=== PATIENT | male | born 1970 | race Caucasian/White ===

== ENCOUNTER 2018-01-22 16:47 | Emergency (ER) | payer OTHER ==
[~2018-01-22] VITALS: Ht 167.6 cm; Wt 102.3 kg
[2018-01-22 17:06] VITALS: Ht 167.6 cm; Wt 102.3 kg
[2018-01-22] MEDS ORDERED: SODIUM CHLORIDE 0.9% 1000ML 1,000 ML IV STA (17:24)
[2018-01-22] MEDS ORDERED: KETOROLAC TROMETHAMINE 30 MG/ML VIAL IV STA (17:24)
[2018-01-22] MEDS ORDERED: ACETAMINOPHEN 500 MG TAB PO STA (17:24)
[2018-01-22] MEDS ORDERED: ONDANSETRON INJ 2 MG/ML 2 ML VIAL IV STA (17:24)
--- NOTE | 2018-01-22 17:30 | EMERGENCY ROOM VISIT NOTE ---
History Report prepared by Tushar: Adonay Ron Under the Supervision of: Dr. Beto Trevizo M.D. First contact with patient: 17:09 Chief Complaint: FLU LIKE SX Stated Complaint: BODY ACHES, SWEATS, CHILLS, DEHYDRATION History of Present Illness The patient is a 47 year old male who presents to the Emergency Room with complaints of persistent flu-like symptoms that started 4 days ago. He states that he started off with nausea and episodes of vomiting, which lasted the day of onset into the next morning. The patient says that he has not vomited since then. The patient says that he has had a persistent fever with chills, in addition to muscle aches and sweats. He notes that he has had a decreased appetite, and has not been eating solid foods.The patient has been drinking Gatorade and water. The patient says that his temperature has been ranging from 100.4 to 100.6 today. He adds that he has had some neck stiffness, lightheadedness, and a headache. He rates his headache as a 7 out of 10 in severity, and describes it as sharp and throbbing. The patient notes that he has been a bit short of breath with walking around. He denies any chest pain, sore throat, congestion, cough, or diarrhea. The patient says that he has been taking DayQuil and NyQuil, the last time being this morning. He does not take any daily medications. The patient's adds that the patient had a tick bite 2 weeks ago which was removed, and he has not had a rash. Source of History: patient, spouse/significant other Onset: 4 days ago Position: other (global) Quality: other (flu-like symptoms) Timing: other (persistent) Associated Symptoms: + fevers, + chills, + headache, + diaphoresis, + neck pain, + SOB, + nausea, + vomiting, No sorethroat, No cough (or congestion), No chest pain, No diarrhea, No rash Note: Associated symptoms: Lightheadedness. Decreased appetite. Muscle aches. Review of Systems See HPI for pertinent positives & negatives. A total of 10 systems reviewed and were otherwise negative. Past Medical & Surgical Medical Problems: (1) Gout Nos (2) Hypertension (3) Other Spondylosis With Radiculopathy, Lumbosacral Region Surgical Problems: (1) History of shoulder surgery Family History FH: cancer FH: diabetes mellitus FH: hypertension FH: lung disease Social History Smoking Status: Never Smoker Alcohol Use: occasionally Marital Status: single Housing Status: lives with family, lives with significant other Occupation Status: employed Current/Historical Medications Scheduled Doxycycline Hyclate (Vibramycin), 100 MG PO BID Allergies Coded Allergies: No Known Allergies (Unverified , 09/21/16) Physical Exam Vital Signs Date Time Temp Pulse Resp B/P (MAP) Pulse Ox O2 Delivery O2 Flow Rate FiO2 01/22/18 19:17 78 16 124/78 98 01/22/18 18:37 37.6 85 16 141/96 98 Room Air 01/22/18 17:06 37.7 107 20 150/97 97 Room Air Physical Exam GENERAL: Patient is in no acute distress. HEENT: No acute trauma, normocephalic atraumatic, mucous membranes moist, no nasal congestion, no scleral icterus. NECK: No stridor, no adenopathy, no meningismus, trachea is midline. LUNGS: Clear to auscultation bilaterally, no wheeze, no rhonchi, breath sounds equal. HEART: Without murmurs gallops or rubs, regular rate and rhythm. ABDOMEN: Soft, nontender, bowel sounds positive, no hernias, no peritonitis. EXTREMITIES: No cyanosis or edema, full range of motion of all the joints without pain or difficulty, no signs for acute trauma. NEUROLOGIC: Oriented x 3, no acute motor or sensory deficits, no focal weakness. SKIN: No rash, no jaundice, no diaphoresis. Medical Decision & Procedures ER Provider Diagnostic Interpretation: X-ray results as stated below per interpretation by me and the radiologist: CHEST ONE VIEW PORTABLE CLINICAL HISTORY: Fever, sepsis COMPARISON STUDY: No previous studies for comparison. FINDINGS: The cardiac and mediastinal contours are normal. There is no evidence of focal pulmonary consolidation. There is no evidence of failure. No pleural effusions are visualized.[ IMPRESSION: No active disease in the chest. Electronically signed by: Tom Perez M.D. 01/22/2018 5:48 PM Dictated Date/Time: 01/22/2018 5:48 PM Laboratory Results 01/22/18 17:45 Red Blood Count 4.34, Mean Corpuscular Volume 89.4, Mean Corpuscular Hemoglobin 31.3, Mean Corpuscular Hemoglobin Concent 35.1, Mean Platelet Volume 10.3 01/22/18 17:45 Test 01/22/18 17:45 01/22/18 17:50 White Blood Count 3.89 K/uL (4.8-10.8) Red Blood Count 4.34 M/uL (4.7-6.1) Hemoglobin 13.6 g/dL (14.0-18.0) Hematocrit 38.8 % (42-52) Mean Corpuscular Volume 89.4 fL (80-100) Mean Corpuscular Hemoglobin 31.3 pg (25-34) Mean Corpuscular Hemoglobin Concent 35.1 g/dl (32-36) Platelet Count 78 K/uL (130-400) Mean Platelet Volume 10.3 fL (7.4-10.4) RDW Standard Deviation 39.5 fL (36.4-46.3) RDW Coefficient of Variation 12.1 % (11.5-14.5) Neutrophils % (Manual) 54.8 % Lymphocytes % (Manual) 22.6 % Variant Lymphocytes % (manual) 9.6 % Monocytes % (Manual) 13.0 % Neutrophils # (Manual) 2.13 K/uL (1.4-6.5) Total Absolute Neutrophils 2.13 K/uL (1.4-6.5) Lymphocytes # (Manual) 0.88 K/uL (1.2-3.4) Absolute Variant Lymphocytes 0.37 K/uL Total Absolute Lymphocytes 1.25 K/uL (1.2-3.4) Monocytes # (Manual) 0.51 K/uL (0.11-0.59) Platelet Estimate DECREASED Red Blood Cell Morphology Unremarkable Anion Gap 6.0 mmol/L (3-11) Est Creatinine Clear Calc Drug Dose 106.6 ml/min Estimated GFR () 107.5 Estimated GFR (Non- 92.7 BUN/Creatinine Ratio 9.0 (10-20) Calcium Level 8.4 mg/dl (8.5-10.1) Total Bilirubin 0.7 mg/dl (0.2-1) Aspartate Amino Transf (AST/SGOT) 44 U/L (15-37) Alanine Aminotransferase (ALT/SGPT) 53 U/L (12-78) Alkaline Phosphatase 46 U/L (45-117) Total Protein 7.8 gm/dl (6.4-8.2) Albumin 3.7 gm/dl (3.4-5.0) Globulin 4.1 gm/dl (2.5-4.0) Albumin/Globulin Ratio 0.9 (0.9-2) Lyme Disease IgG Antibody NEG (NEG) Lyme Disease IgM Antibody NEG (NEG) Urine Color DK YELLOW Urine Appearance CLEAR (CLEAR) Urine pH 5.5 (4.5-7.5) Urine Specific [place] 1.013 (1.000-1.030) Urine Protein NEG (NEG) Urine Glucose (UA) NEG (NEG) Urine Ketones NEG (NEG) Urine Occult Blood NEG (NEG) Urine Nitrite NEG (NEG) Urine Bilirubin NEG (NEG) Urine Urobilinogen NEG (NEG) Urine Leukocyte Esterase NEG (NEG) Influenza Type A Antigen Neg for Influ A (NEG) Influenza Type B Antigen Neg for Influ B (NEG) Laboratory results reviewed by me. Medications Administered Medications (Trade) Dose Ordered Sig/Caitlin Route Start Time Stop Time Status Last Admin Dose Admin Ondansetron HCl (Zofran Inj) 4 mg NOW STAT IV 01/22/18 17:24 01/22/18 17:28 DC 01/22/18 17:48 4 MG Ketorolac Tromethamine (Toradol Inj) 30 mg NOW STAT IV 01/22/18 17:24 01/22/18 17:28 DC 01/22/18 17:48 30 MG Acetaminophen (Tylenol Tab) 1,000 mg NOW STAT PO 01/22/18 17:24 01/22/18 17:28 DC 01/22/18 17:49 1,000 MG Sodium Chloride 1,000 ml @ 999 mls/hr Q1H1M STAT IV 01/22/18 17:24 01/22/18 18:24 DC 01/22/18 17:49 999 MLS/HR Ceftriaxone Sodium (Rocephin Inj) 1 gm NOW STAT IV 01/22/18 18:46 01/22/18 18:48 DC 01/22/18 18:58 1 GM Doxycycline Hyclate (Vibramycin Cap) 100 mg ONE ONCE PO 01/22/18 19:00 01/22/18 19:02 DC 01/22/18 18:59 100 MG ED Course 1710: The medical student, Katheryn Mcgraw, evaluated the patient. 1724: NSS 1000 ml @ 999 mls/hr IV, Tylenol Tab 1000 mg PO, Toradol Inj 30 mg IV , Zofran Inj 4 mg IV. 175: The patient was evaluated in room C4. A complete history and physical exam was performed. 184: Rocephin Inj 1 gm IV. 185: I reevaluated the patient and he is doing fine. 1899: Vibramycin Cap 100 mg PO. 1903: Reevaluated the patient and he is resting comfortably. Discussed results and discharge instructions: he verbalized understanding and agreement. The patient is ready for discharge. Medical Decision Differential diagnosis includes but is not limited to flu-like illness, influenza, pneumonia, dehydration, Lyme disease, electrolyte imbalance, anemia, UTI. There is a slightly low white blood cell count and platelet count. A mild anemia was noted. Renal panel testing shows no significant electrolyte abnormality or kidney failure. AST was slightly elevated on the liver enzyme testing. Chest x-ray does not show pneumonia or CHF. Influenza testing was negative. Lyme disease testing was negative. Ehrlichiosis testing is pending. Urinalysis does not show infection. Patient received IV saline, oral Tylenol, oral doxycycline. He was given IV Zofran, IV Toradol and IV ceftriaxone. Patient presents with flulike symptoms. He has some laboratory abnormalities consistent with possible ehrlichiosis. He did have a tick bite 2 weeks ago. I do think treatment with doxycycline for 2-3 weeks is indicated. Patient was encouraged to return if worsening and to follow with his doctor's office. He was discharged home. Medication Reconcilliation Current Medication List: was personally reviewed by me Blood Pressure Screening Patient's blood pressure: Elevated blood pressure Blood pressure disposition: Referred to PCP Impression Primary Impression: Influenza-like symptoms Additional Impression: Tick bite Scribe Attestation The scribe's documentation has been prepared under my direction and personally reviewed by me in its entirety. I confirm that the note above accurately reflects all work, treatment, procedures, and medical decision making performed by me. Departure Information Dispostion Home / Self-Care Prescriptions Doxycycline Hyclate (VIBRAMYCIN) 100 Mg Cap 100 MG PO BID for 21 Days, #42 CAP Prov: Beto Trevizo M.D. 01/22/18 Referrals No Doctor, Assigned (PCP) Patient Instructions My [facility] Additional Instructions doxycycline 2x per day for 3 weeks rest fluids motrin and or tylenol for fever return if worsening see boy hinkle this upcoming week for a reheck Lyme disease and Ehrlichiosis are possibilities today as we discussed Problem Qualifiers
--- NOTE | 2018-01-22 17:49 | DIAGNOSTIC IMAGING REPORT ---
CHEST ONE VIEW PORTABLE CLINICAL HISTORY: Fever, sepsis COMPARISON STUDY: No previous studies for comparison. FINDINGS: The cardiac and mediastinal contours are normal. There is no evidence of focal pulmonary consolidation. There is no evidence of failure. No pleural effusions are visualized.[ IMPRESSION: No active disease in the chest. Electronically signed by: Tom Perez M.D. 01/22/2018 5:48 PM Dictated Date/Time: 01/22/2018 5:48 PM
[2018-01-22 18:22] LABS: ALBUMIN 3.7 gm/dl (3.4-5.0); CALCIUM 8.4 mg/dl (8.5-10.1); CREATININE 0.98 mg/dl (0.60-1.40); POTASSIUM 3.3 mmol/L (3.5-5.1)
[2018-01-22 18:25] LABS: TOTAL PROTEIN 7.8 gm/dl (6.4-8.2)
[2018-01-22 18:26] LABS: HEMATOCRIT 38.8 % (42-52); HEMOGLOBIN 13.6 g/dL (14.0-18.0); MEAN CELL VOLUME 89.4 fL (80-100); MEAN CORPUSCULAR HEMOGLOBIN 31.3 pg (25-34); MEAN CORPUSCULAR HGB CONC 35.1 g/dl (32-36); MEAN PLATELET VOLUME 10.3 fL (7.4-10.4); PLATELET COUNT 78 K/uL (130-400); RED CELL DISTRIBUTION WIDTH CV 12.1 % (11.5-14.5); RED CELL DISTRIBUTION WIDTH SD 39.5 fL (36.4-46.3); WHITE BLOOD COUNT 3.89 K/uL (4.8-10.8)
[2018-01-22 18:36] LABS: INFLUENZA B ANTIGEN Neg for Influ B (NEG)
[2018-01-22 18:37] VITALS: TEMP 37.6
[2018-01-22] MEDS ORDERED: CEFTRIAXONE SOD INJ 1 GM ADDVIAL IV STA (18:46)
[2018-01-22] MEDS ORDERED: DOXYCYCLINE HYCLATE 100 MG CAP PO ONE (19:00)
[2018-01-22] MEDS ORDERED: DOXY100C PO (19:09)
[2018-01-22 19:17] VITALS: BP 124/78; PULSE 78; O2SAT 98
== END 2018-01-22 19:18 | disposition home or self-care (01) ==
LOC: C.EDB 16:48 → C.EDC 19:18
DX: R11.2 Nausea with vomiting, unspecified (principal); R50.9 Fever, unspecified; M79.1 Myalgia; R51 Headache; R42 Dizziness and giddiness; T14.8XXA Other injury of unspecified body region, initial encounter; W57.XXXA Bitten or stung by nonvenomous insect and other nonvenomous arthropods, initial encounter; I10 Essential (primary) hypertension; M47.27 Other spondylosis with radiculopathy, lumbosacral region; Z83.3 Family history of diabetes mellitus; Z82.49 Family history of ischemic heart disease and other diseases of the circulatory system